=== PATIENT | male | born 1955 | race Caucasian/White ===

== ENCOUNTER 2021-06-14 21:22 | Emergency (ER) | payer OTHER, SELFPAY ==
--- NOTE | ~2021-06-14 | XR_ITS ---
EXAMINATION: XR chest 1V portable EXAM DATE: 06/14/2021 21:54 INDICATION: cp X1.5 Days On Lt Lower Chest, No Cardiac Hx. TECHNIQUE: Portable AP frontal chest x-ray was obtained. There is no prior study for comparison. FINDINGS: The lungs are clear. There are no pleural effusions. The cardiomediastinal silhouette is within normal limits. There is no pneumothorax suspected. The bones and soft tissues are unremarkab le. IMPRESSION: No acute cardiopulmonary findings. Reviewed, dictated and finalized at location A.
--- NOTE | 2021-06-14 21:24 | ECG_ITS ---
Measurements Intervals [place] Rate: 104 P: 26 CO: 135 QRS: -11 QRSD: 83 T: 5 QT: 324 QTc: 427 Interpretive Statements SINUS TACHYCARDIA BORDERLINE T WAVE ABNORMALITY- INFERIOR LEADS BORDERLINE ECG Electronically Signed On 06-15-2021 8:07:51 CDT by Kike Zuniga D.O.
[2021-06-14 21:30] VITALS: BP 174/98; PULSE 103; RESP 18; TEMP 36.8; O2SAT 100
--- NOTE | 2021-06-14 21:43 | ED.CHESTPAIN ---
HPI - Chest Pain General Chief Complaint: Chest Pain Stated Complaint: Chest pain Time Seen by Provider: 06/14/21 21:33 Source: patient Mode of arrival: ambulatory Limitations: no limitations History of Present Illness HPI narrative: 66 year old male with no significant PMH complains of substernal chest pain since yesterday. Non radiating, pressure like worse with lying flat, improves with nothing. States getting worse over time. Lasts for 2 hours at a time, none currently. No shortness of breath, no leg swelling, no fever, no cough, no recent travel no recent surgeries. Patient does not take medicine for CAD, HTN, DM, high cholesterol. States no family history of CAD or sudden . No other complaints, no previous history of same. No history of stress tests in the past. Patient does have a PMD. Related Data Allergies Allergy/AdvReac Type Severity Reaction Status Date / Time No Known Allergies Allergy Verified 06/14/21 21:40 Review of Systems Review of Systems: All systems reviewed & are unremarkable except as noted in HPI and below (HPI and below) Cardiovascular: Cardiovascular: Reports no additional cardiovascular complaints and Reports chest pain Respiratory: Respiratory: Denies chest congestion, Denies cough, Denies dyspnea and Denies wheezing Gastrointestinal: Gastrointestinal: Denies abdominal pain, Denies bloating, Denies constipation, Denies heartburn, Denies diarrhea, Denies nausea and Denies vomiting Musculoskeletal: Musculoskeletal: Denies back pain, Denies myalgias, Denies arthralgias, Denies joint swelling and Denies muscle cramps Neurologic: Denies confusion, Denies vertigo, Denies dizziness, Denies syncope, Denies headache(s), Denies focal weakness, Denies numbness and Denies weakness Exam Const: General: no acute distress and alert Orientation/consciousness: patient oriented x3 HENMT: Mouth: Yes moist mucous membranes Throat: posterior oropharynx normal and uvula midline Eyes: Conjunctivae: conjunctivae normal Pupils: Equal, round and reactive pupils present EOM: EOMs intact bilaterally Neck: Neck: no lymphadenopathy and no meningeal signs Resp: Effort & Inspection: normal respiratory effort Auscultation: clear to auscultation bilaterally Cardio: Rate: regular rate Rhythm: regular rhythm GI: GI Palp: Yes Soft to palpation and Yes Tenderness to palpation present (GI) (epgastric region) Other: no rebound, no gaurding, negative Francis's Skin: General skin exam: normal color Rashes: no rashes Wounds: no wounds Neuro: General: patient oriented x3, moves all extremities, no focal motor deficits and CN's II-XI intact bilaterally Extrem: General: normal to inspection Other: no ZARA B, calf size equal bilaterally Psych: Affect: normal affect Thought content: Yes Normal thought content present Course Course Emergency Course: Patient remained chest pain free in ED. Troponin negative x 2 after 1 day of chest pain, EKG unchanged from 2019, pulse improved. Patient with obesity but no other cardiac risk factors, HEART score= 1; Patient considered safe for discharge. will return if chest pain, shortness of breath worsening symptoms or any concern and will followup with PMD this week without fail. All questions answered. Vital Signs Vital signs: Vital Signs Temperature 36.8 C 06/14/21 21:30 Pulse Rate 103 H 06/14/21 21:30 Respiratory Rate 18 06/14/21 21:30 Blood Pressure 174/98 H 06/14/21 21:30 Pulse Oximetry 100 06/14/21 21:30 Temperature 36.8 C 06/14/21 21:30 Pulse Rate 66 06/15/21 01:48 Respiratory Rate 15 06/15/21 01:48 Blood Pressure 126/93 H 06/15/21 01:48 Pulse Oximetry 98 06/15/21 01:48 MDM - Chest Pain MDM Narrative Medical decision making narrative: 66 year old male with no significant PMH complaining of intermittent chest pain since yesterday, substenal lasting up to 2 hours at a time, exam normal except for epigastric tenderness, NSR on monitor Differenti
[2021-06-14 22:08] LABS: Basophils Absolute Auto 0.1 K/mm3 (0.0-0.1); Basophils Percent Auto 0.5 % (0.2-1.2); Eosinophils Absolute Auto 0.2 K/mm3 (0-0.3); Eosinophils Percent Auto 1.4 % (0-4.4); Hematocrit 42.8 % (42.0-52.0); Hemoglobin 14.3 g/dL (14.0-18.0); Immature Granulocyte Absolute 0.08 K/mm3 (0.00-0.031); Immature Granulocyte Percent A 0.7 % (0-0.5); Lymphocytes Absolute Auto 2.71 K/mm3 (0.9-3.2); Lymphocytes Percent Auto 22.4 % (18.3-44.2); Mean Corpuscular HGB Conc 33.4 g/dl (32-36); Mean Corpuscular Hemoglobin 30.9 pg (26-34); Mean Corpuscular Volume 92.4 fl (80-100); Mean Platelet Volume 10.3 fl (7.4-10.4); Neutrophils Absolute Auto 8.1 K/mm3 (1.3-6.7); Platelet Count Result 238 k/mm3 (150-375); Red Blood Count 4.63 M/mm3 (4.6-6.20); Red Cell Distribution Width 15.2 % (11.5-14.5); White Blood Count 12.1 K/mm3 (4.5-10.0)
[2021-06-14 22:20] LABS: Anion Gap 6 mmol/L (8-16); Blood Urea Nitrogen 26 mg/dL (9-20); Carbon Dioxide 29 mmol/L (22-30); Chloride 106 mmol/L (98-107); Estimated CRCL calculation 55 ml/min; Estimated Glomerular Filt Rate 56; Glucose 112 mg/dL (65-110); INR 0.9; Partial Thromboplastin Time 27.8 SECONDS (22.3-36.8); Potassium 3.9 mmol/L (3.4-5.0); Prothrombin Time 12.3 Seconds (11.1-14.7); Sodium 141 mmol/L (137-145)
[2021-06-14 22:32] LABS: Troponin I < 0.012 ng/mL (0.000-0.034)
[2021-06-14] MEDS: ASPIRIN 81 MG CHEWABLE TABLET 324 MG PO (22:39)
[2021-06-14 22:41] VITALS: BP 126/89; PULSE 86; RESP 20; O2SAT 97
[2021-06-15 01:06] LABS: Troponin I < 0.012 ng/mL (0.000-0.034)
[2021-06-15 01:48] VITALS: BP 126/93; PULSE 66; RESP 15; O2SAT 98
== END 2021-06-15 02:39 | disposition home or self-care (01) ==
PROVIDERS: Emergency Medicine; Emergency Provider Emergency Medicine
DX: R07.2 Precordial pain (principal); R00.0 Tachycardia, unspecified; R94.31 Abnormal electrocardiogram [ECG] [EKG]
CPT/HCPCS: 36415; 71045; 80048; 84484; 85025; 85610; 85730; 93005; 99284; A9270